=== PATIENT | male | born 1965 | race Caucasian/White ===

== ENCOUNTER 2016-09-20 00:46 | Emergency (ER) | payer BC, OTHER ==
[~2016-09-20 00:46] MED LIST: /TAMS4CA OR; CIPR500T4 OR; OXYB5TAB4 OR; PERC5TAB8 OR
[2016-09-20] MEDS ORDERED: CEPHALEXIN 250 MG CAP As Ordered ONE (03:14)
--- NOTE | 2016-09-20 03:31 | EDDOCDS ---
Physician Documentation [facility] Name: Huy Rockwell Age: 50 yrs Sex: Male : 1965 Arrival Date: 09/20/2016 Time: 00:46 Bed 10 Private MD: Disposition: 09/20/16 03:07 Discharged to Home/Self Care. Impression: Cellulitis of right upper limb. - Condition is Stable. - Discharge Instructions: Cellulitis, Cellulitis, [id number]. - Prescriptions for Keflex 500 mg Oral Capsule - take 1 capsule by ORAL route every 6 hours for 10 days; 40 capsule. - Medication Reconciliation, Local Pharmacy Hours form. - Follow up: Pauline Medina PA-C; When: Call to arrange an appointment; Reason: Continuance of care. - Problem is an acute exacerbation. - Symptoms have improved. Historical: - Allergies: Aspirin (Anaphylaxis); Morphine; - Home Meds: 1. ibuprofen 800 mg Oral tab 1 tab 4 times per day (Last dose: 09/19/2016) - PMHx: Kidney stones; Gout; - PSHx: kidney stone removal; - Social history: Smoking status: Patient states was never smoker of tobacco. No barriers to communication noted, The patient speaks fluent Jordanian. - Family history: Not pertinent. - : The pt / caregiver states he / she is not on anticoagulants. Home medication list is obtained from the patient. - Exposure Risk Screening:: None identified. Vital Signs: 09/20 00:52 BP 149 / 102; Pulse 103; Resp 18; Temp 98.5(O); Pulse Ox 96% on R/A; Weight 136.08 kg / mcp 300.01 lbs; Height 5 ft. 10 in. (177.80 cm); Pain 5/10; 03:28 BP 138 / 90; Pulse 78; Resp 18; Temp 97.8; Pulse Ox 97% ; Pain 5/10; mlc 00:52 Body Mass Index 43.05 (136.08 kg, 177.80 cm) mcp 03:28 Dr. Burns made aware of BP mlc MDM: 03:07 Cephalexin 500 mg PO once ordered. mm11 Administered Medications: 03:27 Drug: Cephalexin 500 mg [cephalexin 250 mg capsule (2 caps)] Route: PO; mlc 03:27 Follow up: Response: Pt left department before re-evaluation is appropriate mlc Signatures: Bianca Downs, KENYON RN mcp Dar Burns, DO mm11 Paty Rebollar,KENYON RN mlc MTDD
--- NOTE | 2016-09-20 03:31 | EDDOCDS ---
Nurse's Notes [facility] Name: Huy Rockwell Age: 50 yrs Sex: Male : 1965 Arrival Date: 09/20/2016 Time: 00:46 Bed 10 Private MD: Diagnosis: Cellulitis of right upper limb Presentation: 09/20 00:54 Presenting complaint: Patient states: Right arm reddened and swollen today--thought he mcp had gout 3 days ago. Adult Sepsis Screening: The patient does not have new or worsening altered mentation. Patient's respiratory rate is less than 22. Systolic blood pressure is greater than 100. Patient has a qSOFA score of 0- Negative Sepsis Screen. Suicide/Homicide risk assessment- the patient denies having any suicidal and/or homicidal ideations and does not present with any other emotional, behavioral or mental health complaints. Status: Patient is not a claim service representative or dependent. Transition of care: patient was not received from another setting of care. 00:54 Acuity: DURAN Level 4 [facility] 00:54 Method Of Arrival: Walkin/Carried/Asstd [facility] Triage Assessment: 00:56 General: Appears uncomfortable, Behavior is cooperative. Pain: Location: right arm Pain mcp currently is 5 out of 10 on a pain scale. HIV screening NA for this visit Offered previously. Neurological: No deficits noted. Respiratory: Airway is patent Respiratory effort is even, unlabored. Derm: Skin is pink, warm & dry. right arm reddened. Musculoskeletal: Circulation, motion, and sensation intact Swelling present in right arm. Historical: - Allergies: Aspirin (Anaphylaxis); Morphine; - Home Meds: 1. ibuprofen 800 mg Oral tab 1 tab 4 times per day (Last dose: 09/19/2016) - PMHx: Kidney stones; Gout; - PSHx: kidney stone removal; - Social history: Smoking status: Patient states was never smoker of tobacco. No barriers to communication noted, The patient speaks fluent Slovak. - Family history: Not pertinent. - : The pt / caregiver states he / she is not on anticoagulants. Home medication list is obtained from the patient. - Exposure Risk Screening:: None identified. Screenin:52 Screening information is obtained from the patient. Fall risk: No risks identified. mlc Assistance ADL's: requires no assistance with activities of daily living. Abuse/DV Screen: The patient / caregiver reports he/she is: not in a situation that causes fear, pain or injury. Nutritional screening: No deficits noted. Advance Directives: Currently, there is a health care proxy, Fanny Rockwell, . There is no active DNR order. There is no living will. There is an active Power of Heating And Ventilating Drafter, Fanny Rockwell, . home support is adequate. Assessment: 02:52 General: Appears in no apparent distress, comfortable, Behavior is cooperative. Pain: mlc Location: dorsal aspect of right forearm, right elbow and palmar aspect of right forearm Pain currently is 5 out of 10 on a pain scale. Neurological: Level of Consciousness is awake, alert, Oriented to person, place, time. Cardiovascular: Edema is 1+ to right forearm and right wrist Pulses are all present. Respiratory: Airway is patent Respiratory effort is even, unlabored, Respiratory pattern is regular. Derm: Skin is red, on dorsal aspect of right forearm, right wrist, right hand, right elbow and palmar aspect of right forearm. 03:28 General: Appears in no apparent distress, comfortable, Behavior is cooperative. mlc Neurological: Level of Consciousness is awake, alert, Oriented to person, place, time. Respiratory: Airway is patent Respiratory effort is even, unlabored, Respiratory pattern is regular. Vital Signs: 00:52 BP 149 / 102; Pulse 103; Resp 18; Temp 98.5(O); Pulse Ox 96% on R/A; Weight 136.08 kg; [facility] Height 5 ft. 10 in. (177.80 cm); Pain 5/10; 03:28 BP 138 / 90; Pulse 78; Resp 18; Temp 97.8; Pulse Ox 97% ; Pain 5/10; [facility] 00:52 Body Mass Index 43.05 (136.08 kg, 177.80 cm) [facility] 03:28 Dr. Burns made aware of BP [facility] Vitals: 00:52 Log In Time: September 20, 2016 at 00:46. [facility] ED Course: 00:48 Patient visited by Aminata Morse. gjb 00:48 Patient moved to Waiting gjb 00:54 Triage Initiated [facility] 00:56 Patient visited by Bianca Downs RN. [facility] 00:58 Patient moved to [facility] Wait [facility] 02:27 Paty Rebollar RN is Primary Nurse. cln 02:27 Patient moved to cln 02:36 Patient visited by Blu Naqvi PCA. kb5 02:53 Dar Burns DO is Attending Physician. mm11 02:53 Patient visited by Dar Burns DO. mm11 03:05 Patient visited by Dar Burns DO. mm11 03:07 Pauline Medina PA-C is Referral Physician. mm11 03:28 The patient / caregiver is instructed regarding the plan of care and ED course. mlc 03:28 No IV's were initiated during this patient's visit. No procedures done that require mlc assistance. Administered Medications: 03:27 Drug: Cephalexin 500 mg [cephalexin 250 mg capsule (2 caps)] Route: PO; mlc 03:27 Follow up: Response: Pt left department before re-evaluation is appropriate mlc Order Results: There are currently no results for this order. Outcome: 03:07 Discharge ordered by Provider. mm11 03:28 Discharge Assessment: Patient awake, alert and oriented x 3. No cognitive and/or mlc functional deficits noted. Patient verbalized understanding of disposition instructions. patient administered narcotics - no. The following High Risk Discharge criteria are identified: None. Discharged to home ambulatory, with significant other. Condition: good Condition: stable. Discharge instructions given to patient, Instructed on discharge instructions, follow up and referral plans. medication usage, Demonstrated understanding of instructions, medications, Pt was receptive of discharge instructions/ teaching. Prescriptions given X 1. No special radiology studies were completed. Property sent home with patient. 03:29 Patient left the ED. mlc Signatures: Bianca Downs RN RN [facility] Blu Naqvi, HEAD HOUSEKEEPER HEAD HOUSEKEEPER kb5 Dar Burns DO DO [facility] Paty Rebollar RN RN mlc Beck, Gabriela gjb Nichols, Crystal, HEAD HOUSEKEEPER HEAD HOUSEKEEPER cln BRITTNI
--- NOTE | 2016-09-22 12:27 | EDDOCDS ---
Nurse's Notes [facility] Name: Huy Rockwell Age: 50 yrs Sex: Male : 1965 Arrival Date: 09/20/2016 Time: 00:46 Bed 10 Private MD: Diagnosis: Cellulitis of right upper limb Presentation: 09/20 00:54 Presenting complaint: Patient states: Right arm reddened and swollen today--thought he mcp had gout 3 days ago. Adult Sepsis Screening: The patient does not have new or worsening altered mentation. Patient's respiratory rate is less than 22. Systolic blood pressure is greater than 100. Patient has a qSOFA score of 0- Negative Sepsis Screen. Suicide/Homicide risk assessment- the patient denies having any suicidal and/or homicidal ideations and does not present with any other emotional, behavioral or mental health complaints. Status: Patient is not a social services aide or dependent. Transition of care: patient was not received from another setting of care. 00:54 Acuity: DURAN Level 4 [facility] 00:54 Method Of Arrival: Walkin/Carried/Asstd [facility] Triage Assessment: 00:56 General: Appears uncomfortable, Behavior is cooperative. Pain: Location: right arm Pain mcp currently is 5 out of 10 on a pain scale. HIV screening NA for this visit Offered previously. Neurological: No deficits noted. Respiratory: Airway is patent Respiratory effort is even, unlabored. Derm: Skin is pink, warm & dry. right arm reddened. Musculoskeletal: Circulation, motion, and sensation intact Swelling present in right arm. Historical: - Allergies: Aspirin (Anaphylaxis); Morphine; - Home Meds: 1. ibuprofen 800 mg Oral tab 1 tab 4 times per day (Last dose: 09/19/2016) - PMHx: Kidney stones; Gout; - PSHx: kidney stone removal; - Social history: Smoking status: Patient states was never smoker of tobacco. No barriers to communication noted, The patient speaks fluent Thai. - Family history: Not pertinent. - : The pt / caregiver states he / she is not on anticoagulants. Home medication list is obtained from the patient. - Exposure Risk Screening:: None identified. Screenin:52 Screening information is obtained from the patient. Fall risk: No risks identified. mlc Assistance ADL's: requires no assistance with activities of daily living. Abuse/DV Screen: The patient / caregiver reports he/she is: not in a situation that causes fear, pain or injury. Nutritional screening: No deficits noted. Advance Directives: Currently, there is a health care proxy, Fanny Rockwell, . There is no active DNR order. There is no living will. There is an active Power of Printing Sign Machine Operator, Fanny Rockwell, . home support is adequate. Assessment: 02:52 General: Appears in no apparent distress, comfortable, Behavior is cooperative. Pain: mlc Location: dorsal aspect of right forearm, right elbow and palmar aspect of right forearm Pain currently is 5 out of 10 on a pain scale. Neurological: Level of Consciousness is awake, alert, Oriented to person, place, time. Cardiovascular: Edema is 1+ to right forearm and right wrist Pulses are all present. Respiratory: Airway is patent Respiratory effort is even, unlabored, Respiratory pattern is regular. Derm: Skin is red, on dorsal aspect of right forearm, right wrist, right hand, right elbow and palmar aspect of right forearm. 03:28 General: Appears in no apparent distress, comfortable, Behavior is cooperative. mlc Neurological: Level of Consciousness is awake, alert, Oriented to person, place, time. Respiratory: Airway is patent Respiratory effort is even, unlabored, Respiratory pattern is regular. Vital Signs: 00:52 BP 149 / 102; Pulse 103; Resp 18; Temp 98.5(O); Pulse Ox 96% on R/A; Weight 136.08 kg; [facility] Height 5 ft. 10 in. (177.80 cm); Pain 5/10; 03:28 BP 138 / 90; Pulse 78; Resp 18; Temp 97.8; Pulse Ox 97% ; Pain 5/10; [facility] 00:52 Body Mass Index 43.05 (136.08 kg, 177.80 cm) [facility] 03:28 Dr. Burns made aware of BP [facility] Vitals: 00:52 Log In Time: September 20, 2016 at 00:46. [facility] ED Course: 00:48 Patient visited by Aminata Morse. gjb 00:48 Patient moved to Waiting gjb 00:54 Triage Initiated [facility] 00:56 Patient visited by Bianca Downs RN. [facility] 00:58 Patient moved to [facility] Wait [facility] 02:27 Paty Rebollar RN is Primary Nurse. cln 02:27 Patient moved to cln 02:36 Patient visited by Blu Naqvi PCA. kb5 02:53 Dar Burns DO is Attending Physician. mm11 02:53 Patient visited by Dar Bunrs DO. mm11 03:05 Patient visited by Dar Burns DO. mm11 03:07 Pauline Medina PA-C is Referral Physician. mm11 03:28 The patient / caregiver is instructed regarding the plan of care and ED course. mlc 03:28 No IV's were initiated during this patient's visit. No procedures done that require mlc assistance. 03:31 [facility] Payment Agreement was scanned into [employer] and attached to record. [facility] 03:42 [facility] Payment Agreement was scanned into [employer] and attached to record. [facility] 07:52 T-Sheet-- Draft Copy was scanned into [employer] and attached to record. se Administered Medications: 03:27 Drug: Cephalexin 500 mg [cephalexin 250 mg capsule (2 caps)] Route: PO; mlc 03:27 Follow up: Response: Pt left department before re-evaluation is appropriate mlc Order Results: There are currently no results for this order. Outcome: 03:07 Discharge ordered by Provider. mm11 03:28 Discharge Assessment: Patient awake, alert and oriented x 3. No cognitive and/or mlc functional deficits noted. Patient verbalized understanding of disposition instructions. patient administered narcotics - no. The following High Risk Discharge criteria are identified: None. Discharged to home ambulatory, with significant other. Condition: good Condition: stable. Discharge instructions given to patient, Instructed on discharge instructions, follow up and referral plans. medication usage, Demonstrated understanding of instructions, medications, Pt was receptive of discharge instructions/ teaching. Prescriptions given X 1. No special radiology studies were completed. Property sent home with patient. 03:29 Patient left the ED. mlc Signatures: Bianca Downs RN RN [facility] Blu Naqvi, PILATES INSTRUCTOR PILATES INSTRUCTOR kb5 Dar Burns DO DO mm11 Paty Rebollar RN RN mlc Beck, Gabriela gjb Nichols, Crystal, PILATES INSTRUCTOR PILATES INSTRUCTOR lesley Luther, Nati [facility] Chart Complete MTDD
--- NOTE | 2016-09-22 12:27 | EDDOCDS ---
Physician Documentation [facility] Name: Huy Rockwell Age: 50 yrs Sex: Male : 1965 Arrival Date: 09/20/2016 Time: 00:46 Bed 10 Private MD: Disposition: 09/20/16 03:07 Discharged to Home/Self Care. Impression: Cellulitis of right upper limb. - Condition is Stable. - Discharge Instructions: Cellulitis, Cellulitis, [id number]. - Prescriptions for Keflex 500 mg Oral Capsule - take 1 capsule by ORAL route every 6 hours for 10 days; 40 capsule. - Medication Reconciliation, Local Pharmacy Hours form. - Follow up: Pauline Medina PA-C; When: Call to arrange an appointment; Reason: Continuance of care. - Problem is an acute exacerbation. - Symptoms have improved. Historical: - Allergies: Aspirin (Anaphylaxis); Morphine; - Home Meds: 1. ibuprofen 800 mg Oral tab 1 tab 4 times per day (Last dose: 09/19/2016) - PMHx: Kidney stones; Gout; - PSHx: kidney stone removal; - Social history: Smoking status: Patient states was never smoker of tobacco. No barriers to communication noted, The patient speaks fluent Kittitian. - Family history: Not pertinent. - : The pt / caregiver states he / she is not on anticoagulants. Home medication list is obtained from the patient. - Exposure Risk Screening:: None identified. Vital Signs: 09/20 00:52 BP 149 / 102; Pulse 103; Resp 18; Temp 98.5(O); Pulse Ox 96% on R/A; Weight 136.08 kg / mcp 300.01 lbs; Height 5 ft. 10 in. (177.80 cm); Pain 5/10; 03:28 BP 138 / 90; Pulse 78; Resp 18; Temp 97.8; Pulse Ox 97% ; Pain 5/10; mlc 00:52 Body Mass Index 43.05 (136.08 kg, 177.80 cm) mcp 03:28 Dr. Burns made aware of BP mlc MDM: 03:07 Cephalexin 500 mg PO once ordered. mm11 03:31 [facility] Payment Agreement was scanned into [employer] and attached to record. b 03:31 Financial registration complete. b 03:42 [facility] Payment Agreement was scanned into [employer] and attached to record. [facility] 07:52 T-Sheet-- Draft Copy was scanned into [employer] and attached to record. [facility] Administered Medications: 03:27 Drug: Cephalexin 500 mg [cephalexin 250 mg capsule (2 caps)] Route: PO; [facility] 03:27 Follow up: Response: Pt left department before re-evaluation is appropriate [facility] Signatures: Bianca Downs RN RN mcp Maynard, Matthew, DO DO mm11 Paty Rebollar RN RN mlc Beck, Gabriela gjb Hoffert, Sarah se The chart was reviewed and I authenticate all verbal orders and agree with the evaluation and treatment provided.Attachments: 03:42 [facility] Payment Agreement [facility] 07:52 T-Sheet-- Draft Copy [facility] Chart Complete MTDD
--- NOTE | 2016-09-22 12:27 | EDDOCDS ---
Physician Documentation [facility] Name: Huy Rockwell Age: 50 yrs Sex: Male : 1965 Arrival Date: 09/20/2016 Time: 00:46 Bed 10 Private MD: Disposition: 09/20/16 03:07 Discharged to Home/Self Care. Impression: Cellulitis of right upper limb. - Condition is Stable. - Discharge Instructions: Cellulitis, Cellulitis, [id number]. - Prescriptions for Keflex 500 mg Oral Capsule - take 1 capsule by ORAL route every 6 hours for 10 days; 40 capsule. - Medication Reconciliation, Local Pharmacy Hours form. - Follow up: Pauline Medina PA-C; When: Call to arrange an appointment; Reason: Continuance of care. - Problem is an acute exacerbation. - Symptoms have improved. Historical: - Allergies: Aspirin (Anaphylaxis); Morphine; - Home Meds: 1. ibuprofen 800 mg Oral tab 1 tab 4 times per day (Last dose: 09/19/2016) - PMHx: Kidney stones; Gout; - PSHx: kidney stone removal; - Social history: Smoking status: Patient states was never smoker of tobacco. No barriers to communication noted, The patient speaks fluent Japanese. - Family history: Not pertinent. - : The pt / caregiver states he / she is not on anticoagulants. Home medication list is obtained from the patient. - Exposure Risk Screening:: None identified. Vital Signs: 09/20 00:52 BP 149 / 102; Pulse 103; Resp 18; Temp 98.5(O); Pulse Ox 96% on R/A; Weight 136.08 kg / mcp 300.01 lbs; Height 5 ft. 10 in. (177.80 cm); Pain 5/10; 03:28 BP 138 / 90; Pulse 78; Resp 18; Temp 97.8; Pulse Ox 97% ; Pain 5/10; mlc 00:52 Body Mass Index 43.05 (136.08 kg, 177.80 cm) mcp 03:28 Dr. Burns made aware of BP mlc MDM: 03:07 Cephalexin 500 mg PO once ordered. mm11 03:31 [facility] Payment Agreement was scanned into [employer] and attached to record. b 03:31 Financial registration complete. b 03:42 [facility] Payment Agreement was scanned into [employer] and attached to record. [facility] 07:52 T-Sheet-- Draft Copy was scanned into [employer] and attached to record. [facility] Administered Medications: 03:27 Drug: Cephalexin 500 mg [cephalexin 250 mg capsule (2 caps)] Route: PO; [facility] 03:27 Follow up: Response: Pt left department before re-evaluation is appropriate [facility] Signatures: Bianca Downs RN RN mcp Maynard, Matthew, DO DO mm11 Paty Rebollar RN RN mlc Beck, Gabriela gjb Hoffert, Sarah se The chart was reviewed and I authenticate all verbal orders and agree with the evaluation and treatment provided.Attachments: 03:42 [facility] Payment Agreement [facility] 07:52 T-Sheet-- Draft Copy [facility] Chart Complete MTDD
== END 2016-09-20 03:29 | disposition home or self-care (01) ==
LOC: M ED 00:46
DX: L03.113 Cellulitis of right upper limb (principal); Z87.442 Personal history of urinary calculi; M10.9 Gout, unspecified; Z88.6 Allergy status to analgesic agent; Z88.8 Allergy status to other drugs, medicaments and biological substances

== ENCOUNTER → 2016-10-22 | Outpatient (REF) | payer OTHER ==
[2016-10-22 19:09] LABS: BASO % 0.8 % (0.0-1.0); EOS # 0.2 K/mm3 (0.0-0.50); EOS % 2.9 % (0.0-3.0); LARGE UNSTAINED CELL # 0.1 K/mm3 (0.0-0.4); LARGE UNSTAINED CELL % 1.6 % (0.0-4.0); MEAN CORPUSCULAR HGB CONC 33.6 g/dl (32.0-36.5); MEAN CORPUSCULAR VOLUME 92.2 fl (80.0-96.0); MONO # 0.4 K/mm3 (0.0-0.8); MONO % 6.1 % (0.0-5.0); NEUTROPHILS # 4.4 K/mm3 (1.8-7.7); NEUTROPHILS % 61.5 % (36.0-66.0); PLATELET COUNT, AUTOMATED 256 k/mm3 (150-450); RED CELL DISTRIBUTION WIDTH 13.3 % (11.5-14.5); WHITE BLOOD COUNT 7.1 K/mm3 (4.0-10.0)
[2016-10-22 20:46] LABS: ERYTHROCYTE SEDIMENTATION RATE 26 mm/hr (0-20)
[2016-10-24 15:12] LABS: Lyme Disease IgG/IgM Antibodie <0.91 ISR (0.00-0.90); Lyme Disease IgM Ab Quantitati <0.80 index (0.00-0.79)
== END ==
LOC: M SFHCADAM 14:45
PROVIDERS: ATTEND Physician Assistant Medical
DX: M25.521 Pain in right elbow (principal); L03.113 Cellulitis of right upper limb

== ENCOUNTER → 2017-08-27 | Outpatient (REF) | payer OTHER | LOC: M SMT 12:56 | PROVIDERS: ATTEND Nurse Practitioner Women's Health | DX: N13.2 Hydronephrosis with renal and ureteral calculous obstruction (principal) ==

== ENCOUNTER → 2017-08-27 | Outpatient (CLI) | payer BC, OTHER ==
[2017-08-27 17:41] LABS: IONIZED CALCIUM 4.7 MG/DL (4.5-5.3)
[2017-08-27 18:11] LABS: ANION GAP 3 MEQ/L (8-16); BLOOD UREA NITROGEN 16 MG/DL (7-18); CARBON DIOXIDE LEVEL 34 MEQ/L (21-32); CHLORIDE LEVEL 103 MEQ/L (98-107); CREATININE FOR GFR 0.98 MG/DL (0.70-1.30); GLOMERULAR FILTRATION RATE > 60.0 (>56); GLUCOSE, FASTING 108 MG/DL (70-105); MAGNESIUM LEVEL 2.3 MG/DL (1.8-2.4); POTASSIUM SERUM 4.6 MEQ/L (3.5-5.1); SODIUM LEVEL 140 MEQ/L (136-145); URIC ACID 7.8 MG/DL (3.5-7.2)
== END ==
LOC: M SMT 13:17
PROVIDERS: ATTEND Nurse Practitioner Women's Health
DX: N13.2 Hydronephrosis with renal and ureteral calculous obstruction (principal)

== ENCOUNTER 2018-07-27 21:22 | Emergency (ER) | payer BC, OTHER ==
[2018-07-27] MEDS ORDERED: KETOROLAC 30 MG/ML VIAL (J1885) IV (22:00)
[2018-07-27] MEDS: NS 1,000 ML IV (22:11)
[2018-07-27] MEDS: fentaNYL 100 MCG/2 ML INJECTION (J3010) IV ×5 (22:12→23:45)
[2018-07-27] MEDS: ONDANSETRON 4MG/2ML VIAL (J2405) IV (22:12)
[2018-07-27 22:13] LABS: BASO # 0.1 10^3/uL (0.0-0.2); BASO % 0.5 % (0.0-1.0); EOS % 0.4 % (0.0-3.0); HEMATOCRIT 49.5 % (42.0-52.0); HEMOGLOBIN 16.8 g/dl (13.5-17.5); IMMATURE GRANULOCYTE % 0.3 % (0-3.0); LYMPH # 1.3 10^3/uL (1.5-4.5); LYMPH % 12.3 % (24.0-44.0); MEAN CORPUSCULAR HEMOGLOBIN 30.8 pg (27.0-33.0); MEAN CORPUSCULAR HGB CONC 33.9 g/dl (32.0-36.5); MEAN CORPUSCULAR VOLUME 90.7 fl (80.0-96.0); MONO # 0.6 10^3/uL (0.0-0.8); MONO % 5.7 % (0.0-5.0); NEUTROPHILS # 8.3 10^3/uL (1.8-7.7); NEUTROPHILS % 80.8 % (36.0-66.0); PLATELET COUNT, AUTOMATED 273 10^3/uL (150-450); RED BLOOD COUNT 5.46 10^6/uL (4.30-6.10); RED CELL DISTRIBUTION WIDTH 12.7 % (11.5-14.5); WHITE BLOOD COUNT 10.3 10^3/uL (4.0-10.0)
[2018-07-27 22:24] LABS: KETONE, URINE AUTO RFX NEGATIVE (NEGATIVE); LEUKOCYTE ESTERASE UR AUTO RFX NEGATIVE (NEGATIVE); MUCUS, URINE RFX SMALL (NEGATIVE); NITRITE, URINE AUTO RFX NEGATIVE (NEGATIVE); RBC, URINE AUTO RFX TNTC /HPF (0-3); SPECIFIC GRAVITY UR AUTO RFX 1.018 (1.002-1.035); SQUAM EPITHELIAL CELL UR AURFX 0 /HPF (0-6); WBC, URINE AUTO RFX 2 /HPF (0-3); YEAST LIKE CELL URINE AUTO RFX SMALL
[2018-07-27 22:39] LABS: ALBUMIN 3.9 GM/DL (3.2-5.2); ALBUMIN/GLOBULIN RATIO 0.95 (1.00-1.93); ALKALINE PHOSPHATASE 111 U/L (45-117); ALT/SGPT 71 U/L (12-78); ANION GAP 8 MEQ/L (8-16); AST/SGOT 35 U/L (7-37); BILIRUBIN,DIRECT 0.1 MG/DL (0.0-0.2); BILIRUBIN,TOTAL 0.3 MG/DL (0.2-1.0); BLOOD UREA NITROGEN 12 MG/DL (7-18); CARBON DIOXIDE LEVEL 27 MEQ/L (21-32); CHLORIDE LEVEL 103 MEQ/L (98-107); CREATININE FOR GFR 1.06 MG/DL (0.70-1.30); GLOMERULAR FILTRATION RATE > 60.0 (>56); GLUCOSE, FASTING 162 MG/DL (70-100); LIPASE 115 U/L (73-393); POTASSIUM SERUM 4.4 MEQ/L (3.5-5.1); SODIUM LEVEL 138 MEQ/L (136-145)
[2018-07-27] MEDS: TAMSULOSIN 0.4 MG CAP PO (23:30)
[2018-07-27] MEDS: OXYCODONE/APAP 5MG/325MG(BULK FOR ED) 1 TABLET PO (23:30)
== END 2018-07-28 00:31 | disposition home or self-care (01) ==
LOC: M ED 07-28 00:31
DX: N20.1 Calculus of ureter (principal); R73.9 Hyperglycemia, unspecified; N13.30 Unspecified hydronephrosis; Z87.442 Personal history of urinary calculi; Z98.890 Other specified postprocedural states; Z88.8 Allergy status to other drugs, medicaments and biological substances; Z88.5 Allergy status to narcotic agent
CPT/HCPCS: J2405

== ENCOUNTER → 2018-07-29 | Outpatient (REF) | payer OTHER ==
[2018-07-29 13:16] LABS: BASO % 0.5 % (0.0-1.0); EOS # 0.1 10^3/uL (0.0-0.50); EOS % 1.5 % (0.0-3.0); HEMATOCRIT 44.3 % (42.0-52.0); IMMATURE GRANULOCYTE % 0.7 % (0-3.0); LYMPH # 2.3 10^3/uL (1.5-4.5); MEAN CORPUSCULAR HEMOGLOBIN 30.9 pg (27.0-33.0); MEAN CORPUSCULAR HGB CONC 33.9 g/dl (32.0-36.5); MEAN CORPUSCULAR VOLUME 91.3 fl (80.0-96.0); MONO # 0.7 10^3/uL (0.0-0.8); MONO % 8.4 % (0.0-5.0); NEUTROPHILS # 5.6 10^3/uL (1.8-7.7); NEUTROPHILS % 62.9 % (36.0-66.0); PLATELET COUNT, AUTOMATED 252 10^3/uL (150-450); RED BLOOD COUNT 4.85 10^6/uL (4.30-6.10); RED CELL DISTRIBUTION WIDTH 12.9 % (11.5-14.5); WHITE BLOOD COUNT 8.8 10^3/uL (4.0-10.0)
[2018-07-29 13:29] LABS: ALBUMIN 3.4 GM/DL (3.2-5.2); ALBUMIN/GLOBULIN RATIO 0.94 (1.00-1.93); ALKALINE PHOSPHATASE 85 U/L (45-117); ALT/SGPT 57 U/L (12-78); ANION GAP 10 MEQ/L (8-16); AST/SGOT 41 U/L (7-37); BILIRUBIN,TOTAL 0.6 MG/DL (0.2-1.0); BLOOD UREA NITROGEN 14 MG/DL (7-18); CALCIUM LEVEL 8.4 MG/DL (8.5-10.1); CARBON DIOXIDE LEVEL 27 MEQ/L (21-32); CHLORIDE LEVEL 101 MEQ/L (98-107); CHOLESTEROL LEVEL 175 MG/DL (<200); CHOLESTEROL RISK RATIO 3.181 (<5); CREATININE FOR GFR 1.16 MG/DL (0.70-1.30); GLOMERULAR FILTRATION RATE > 60.0 (>56); GLUCOSE, FASTING 133 MG/DL (70-100); HDL CHOLESTEROL 55 MG/DL (>40); LDL CHOLESTEROL 92 MG/DL (<100); NON-HDL-C 120 MG/DL; POTASSIUM SERUM 3.8 MEQ/L (3.5-5.1); SODIUM LEVEL 138 MEQ/L (136-145); TRIGLYCERIDES LEVEL 141 MG/DL (<150)
[2018-07-29 13:30] LABS: MALB URINE SIEMENS 19.5 MG/L; MAU/CREAT RATIO 13.7 MCG/MG (0.0-30.0)
[2018-07-29 13:57] LABS: ESTIMATED AVERAGE GLUCOSE 166 MG/DL (60-110); HEMOGLOBIN A1c 7.4 %
== END ==
LOC: M SFHCADAM 08:58
DX: E66.01 Morbid (severe) obesity due to excess calories (principal); R73.01 Impaired fasting glucose

== ENCOUNTER → 2018-07-29 | Outpatient (REF) | payer OTHER | LOC: M SMT 08-01 13:16 | DX: N20.0 Calculus of kidney (principal) | CPT/HCPCS: 82360 ==

== ENCOUNTER → 2018-08-17 | Outpatient (CLI) | payer BC, OTHER | LOC: M ADAMS 09:28 | DX: Z01.818 Encounter for other preprocedural examination (principal); M51.34 Other intervertebral disc degeneration, thoracic region | CPT/HCPCS: 71046 ==

== ENCOUNTER 2018-08-18 09:34 | Day surgery (SDC) | payer BC, OTHER ==
[~2018-08-18 09:34] MED LIST changes: -/TAMS4CA OR; -CIPR500T4 OR; +MIDAZOLAM INJ 2 MG/2 ML VIAL (J2250) As Ordered; -OXYB5TAB4 OR; -PERC5TAB8 OR; +PROPOFOL 200 MG/20 ML VIAL As Ordered; +fentaNYL 100 MCG/2 ML INJECTION (J3010) As Ordered
[2018-08-18] MEDS ORDERED: PROPOFOL 200 MG/20 ML VIAL As Ordered (10:50)
[2018-08-18 10:55] LABS: BEDSIDE GLUCOSE 139 MG/DL (70-105)
[2018-08-18 11:12] LABS: INR 1.08; PROTHROMBIN TIME 14.1 SECONDS (12.1-14.4)
[2018-08-18 11:13] LABS: PARTIAL THROMBOPLASTIN TIME 31.2 SECONDS (25.4-37.6)
[2018-08-18] MEDS: ceFAZolin SOD 1 GM in D5W MINI-BAG PLUS 50 ML IV (11:17)
== END 2018-08-18 13:25 | disposition home or self-care (01) ==
LOC: M SDC 09:34
DX: N20.0 Calculus of kidney (principal); E11.9 Type 2 diabetes mellitus without complications; M10.9 Gout, unspecified; E66.01 Morbid (severe) obesity due to excess calories; Z68.41 Body mass index [BMI] 40.0-44.9, adult; Z88.5 Allergy status to narcotic agent; Z88.6 Allergy status to analgesic agent; Z79.84 Long term (current) use of oral hypoglycemic drugs
CPT/HCPCS: 50590

== ENCOUNTER → 2018-09-19 | Outpatient (CLI) | payer BC, OTHER ==
[~2018-09-19] MED LIST changes: +/TAMS4CA OR; +CIPR500T4 OR; +FLOM0.4C39 PO; +METF500T13 PO; -MIDAZOLAM INJ 2 MG/2 ML VIAL (J2250) As Ordered; +OXYB5TAB4 OR; +PERC5TAB12 PO; +PERC5TAB8 OR; -PROPOFOL 200 MG/20 ML VIAL As Ordered; -fentaNYL 100 MCG/2 ML INJECTION (J3010) As Ordered
--- NOTE | 2018-09-20 02:27 | REP ---
Clinical: Nephrolithiasis. Technique: Two supine views of the abdomen and pelvis. Comparison: 08/18/2018. Findings: Small bilateral intrarenal calculi are again suggested. Further evaluation of the urinary tract system is limited due to technique. Bowel gas pattern is nonspecific. Skeletal structures are intact. Impression: Bilateral nephrolithiasis again suspected. Electronically Signed by Caden Zuniga MD 09/20/2018 02:20 A
== END ==
LOC: M SMT 14:47
PROVIDERS: ATTEND Nurse Practitioner Family
DX: N20.0 Calculus of kidney (principal)

== ENCOUNTER → 2018-10-25 | Outpatient (CLI) | payer BC, OTHER ==
--- NOTE | 2018-10-25 08:57 | REP ---
CT of the abdomen and pelvis without IV and oral contrast for renal calculus: Comparison is 07/27/2018. There are multiple nonobstructive renal calculi bilaterally, similar to the prior study. There is no hydronephrosis. The distal left ureteral calculus identified on the prior study is no longer present. There are no right ureteral calculi. No perinephric stranding. The unenhanced kidneys are otherwise unremarkable. The visualized lung barreto are unremarkable. The unenhanced hepatic parenchyma, gallbladder, pancreas, spleen and adrenals are unremarkable. The abdominal aorta is unremarkable. There is no bowel distension or obstruction. There is diverticulosis of the descending colon and sigmoid colon without acute diverticulitis. Pelvis: The appendix is unremarkable. There is no adenopathy or ascites. The bladder is unremarkable. The pelvic bowel loops are unremarkable. Impression: There are multiple nonobstructive bilateral renal calculi, similar to the prior study. There are no ureteral calculi. There is no hydronephrosis. The previous distal left ureteral calculus is no longer present. Electronically Signed by Kip Aponte MD 10/25/2018 08:49 A
== END ==
LOC: M RAD 07:11
PROVIDERS: ATTEND Internal Medicine Nephrology
DX: N20.0 Calculus of kidney (principal)

== ENCOUNTER → 2019-02-17 | Outpatient (REF) | payer OTHER ==
[~2019-02-17] MED LIST changes: -/TAMS4CA OR; +FLOM0.4C39 OR
== END ==
LOC: M SFHCADAM 14:02
PROVIDERS: ATTEND Physician Assistant Medical
DX: E11.9 Type 2 diabetes mellitus without complications (principal); E66.01 Morbid (severe) obesity due to excess calories; Z53.9 Procedure and treatment not carried out, unspecified reason

== ENCOUNTER → 2019-08-03 | Outpatient (REF) | payer OTHER ==
[2019-08-03 13:40] LABS: ALBUMIN 3.3 GM/DL (3.2-5.2); ALT/SGPT 97 U/L (12-78); BILIRUBIN,TOTAL 0.4 MG/DL (0.2-1.0); BLOOD UREA NITROGEN 8 MG/DL (7-18); CALCIUM LEVEL 8.7 MG/DL (8.5-10.1); CARBON DIOXIDE LEVEL 30 MEQ/L (21-32); CHLORIDE LEVEL 102 MEQ/L (98-107); CHOLESTEROL LEVEL 176 MG/DL (<200); CHOLESTEROL RISK RATIO 3.744 (<5); CREATININE FOR GFR 1.07 MG/DL (0.70-1.30); GLOMERULAR FILTRATION RATE > 60.0 (>56); GLUCOSE, FASTING 220 MG/DL (70-100); HDL CHOLESTEROL 47 MG/DL (>40); LDL CHOLESTEROL 91 MG/DL (<100); NON-HDL-C 129 MG/DL; POTASSIUM SERUM 4.4 MEQ/L (3.5-5.1); SODIUM LEVEL 138 MEQ/L (136-145); TOTAL PROTEIN 7.3 GM/DL (6.4-8.2); TRIGLYCERIDES LEVEL 189 MG/DL (<150); URIC ACID 5.1 MG/DL (3.5-7.2)
[2019-08-03 14:08] LABS: HEMOGLOBIN A1c 10.5 %
== END ==
LOC: M SFHCADAM 07:43
PROVIDERS: ATTEND Physician Assistant Medical
DX: E11.9 Type 2 diabetes mellitus without complications (principal); M10.9 Gout, unspecified

== ENCOUNTER → 2019-10-16 | Outpatient (CLI) | payer BC, OTHER ==
--- NOTE | 2019-10-17 03:50 | REP ---
Clinical: Elevated liver function test. Technique: Real time oreilly scale ultrasound examination using curved array transducer. Findings: Liver is mildly hyperechoic and minimally enlarged measuring 20 cm craniocaudal length. No focal hepatic lesion identified. Pancreas is normal. Gallbladder is unremarkable and without gallstones, wall thickening, or pericholecystic fluid. No biliary ductal dilatation is appreciated and the common bile duct measures 3.7 mm diameter. The right kidney is normal in reniform shape without hydronephrosis and measures 13.6 x 4.5 x 6.2 cm with evidence for renovascular calcifications and possible 6 mm nonobstructing midpole calculus. No ascites. Impression: 1. Mild hepatic steatosis and hepatomegaly suggested without focal hepatic lesion. 2. 6 mm nonobstructing right renal calculus. Electronically Signed by Caden Zuniga MD 10/17/2019 03:41 A
== END ==
LOC: M RAD 08:53
PROVIDERS: ATTEND Physician Assistant Medical
DX: R94.5 Abnormal results of liver function studies (principal)

== ENCOUNTER → 2019-12-28 | Outpatient (CLI) | payer BC, OTHER ==
--- NOTE | 2019-12-29 04:45 | REP ---
Clinical: Renal stone. Technique: Real time oreilly scale ultrasound examination using curved array transducer. Findings: Bilateral kidneys are normal in contour, size, echogenicity, and reniform shape without hydronephrosis, cystic or renal mass lesion. Bilateral nonobstructing intrarenal calculi noted. No perinephric fluid collection. Right kidney measures 13.5 x 6.5 x 6.3 cm with largest calculus measuring 6 mm in the mid pole. Left kidney measures 14.4 x 6.4 x 6.6 cm with the largest calculus measuring 8 mm in the upper pole. Bladder is normal and bilateral ureteral jets are identified. Impression: Bilateral nonobstructing intrarenal calculi. No hydronephrosis. Electronically Signed by Caden Zuniga MD 12/29/2019 04:37 A
== END ==
LOC: M RAD 12:26
PROVIDERS: ATTEND Physician Assistant Medical
DX: N20.0 Calculus of kidney (principal)

== ENCOUNTER → 2020-09-19 | Outpatient (CLI) | payer BC, OTHER ==
[2020-09-19 14:19] LABS: BLOOD UREA NITROGEN 14 MG/DL (7-18); GLOMERULAR FILTRATION RATE > 60.0 (>56)
== END ==
LOC: M PLALAB 11:17
PROVIDERS: ATTEND Orthopaedic Surgery
DX: S76.212A Strain of adductor muscle, fascia and tendon of left thigh, initial encounter (principal); X58.XXXA Exposure to other specified factors, initial encounter; Y92.89 Other specified places as the place of occurrence of the external cause; Y93.89 Activity, other specified; Y99.8 Other external cause status

== ENCOUNTER → 2021-04-25 | Outpatient (REF) | payer OTHER ==
[2021-04-25 12:52] LABS: BASO # 0.1 10^3/uL (0.0-0.2); EOS # 0.2 10^3/uL (0.0-0.5); EOS % 2.8 % (0.0-3.0); HEMATOCRIT 47.3 % (42.0-52.0); HEMOGLOBIN 16.1 g/dl (13.5-17.5); LYMPH # 1.9 10^3/uL (1.5-5.0); LYMPH % 27.9 % (24.0-44.0); MEAN CORPUSCULAR HEMOGLOBIN 30.8 pg (27.0-33.0); MEAN CORPUSCULAR VOLUME 90.4 fl (80.0-96.0); MONO # 0.5 10^3/uL (0.0-0.8); MONO % 7.4 % (2.0-8.0); NEUTROPHILS # 4.1 10^3/uL (1.5-8.5); NEUTROPHILS % 60.6 % (36.0-66.0); PLATELET COUNT, AUTOMATED 233 10^3/uL (150-450); RED BLOOD COUNT 5.23 10^6/uL (4.30-6.10); WHITE BLOOD COUNT 6.8 10^3/uL (4.0-10.0)
[2021-04-25 13:20] LABS: ALBUMIN 3.7 GM/DL (3.2-5.2); ALT/SGPT 67 U/L (12-78); BILIRUBIN,TOTAL 0.6 MG/DL (0.2-1.0); BLOOD UREA NITROGEN 11 MG/DL (7-18); CALCIUM LEVEL 9.5 MG/DL (8.5-10.1); CARBON DIOXIDE LEVEL 31 MEQ/L (21-32); CHLORIDE LEVEL 102 MEQ/L (98-107); CHOLESTEROL LEVEL 195 MG/DL (<200); CHOLESTEROL RISK RATIO 3.421 (<5); CREATININE FOR GFR 0.98 MG/DL (0.70-1.30); GLOMERULAR FILTRATION RATE > 60.0 (>56); GLUCOSE, FASTING 257 MG/DL (70-100); HDL CHOLESTEROL 57 MG/DL (>40); LDL CHOLESTEROL 106 MG/DL (<100); NON-HDL-C 138 MG/DL; POTASSIUM SERUM 4.5 MEQ/L (3.5-5.1); SODIUM LEVEL 140 MEQ/L (136-145); TOTAL 25(OH) VITAMIN D 24.2 NG/ML (30.0-100.0); TOTAL PROTEIN 7.3 GM/DL (6.4-8.2); TRIGLYCERIDES LEVEL 160 MG/DL (<150)
[2021-04-25 13:59] LABS: HEMOGLOBIN A1c 10.8 %
== END ==
LOC: M SFHCADAM 09:16
PROVIDERS: ATTEND Physician Assistant Medical
DX: M10.9 Gout, unspecified (principal); E11.9 Type 2 diabetes mellitus without complications; E66.01 Morbid (severe) obesity due to excess calories

== ENCOUNTER → 2021-08-13 | Outpatient (REF) | payer OTHER ==
[~2021-08-13] MED LIST changes: +SEMA14TA PO
[2021-08-13 13:12] LABS: ALBUMIN 3.6 GM/DL (3.2-5.2); ALT/SGPT 41 U/L (12-78); BILIRUBIN,TOTAL 0.4 MG/DL (0.2-1.0); BLOOD UREA NITROGEN 11 MG/DL (7-18); CALCIUM LEVEL 9.4 MG/DL (8.5-10.1); CARBON DIOXIDE LEVEL 30 MEQ/L (21-32); CHLORIDE LEVEL 105 MEQ/L (98-107); CREATININE FOR GFR 1.06 MG/DL (0.70-1.30); GLOMERULAR FILTRATION RATE > 60.0 (>56); GLUCOSE, FASTING 139 MG/DL (70-100); POTASSIUM SERUM 4.7 MEQ/L (3.5-5.1); SODIUM LEVEL 141 MEQ/L (136-145); TOTAL PROTEIN 7.4 GM/DL (6.4-8.2)
[2021-08-13 13:15] LABS: HEMOGLOBIN A1c 7.4 %
== END ==
LOC: M SFHCADAM 10:34
PROVIDERS: ATTEND Physician Assistant Medical
DX: E11.65 Type 2 diabetes mellitus with hyperglycemia (principal)

== ENCOUNTER → 2021-09-26 | Outpatient (CLI) | payer OTHER | LOC: M LABSMTC 10:51 | PROVIDERS: ATTEND Anesthesiology | DX: Z01.812 Encounter for preprocedural laboratory examination (principal); Z20.822 Contact with and (suspected) exposure to COVID-19 ==

== ENCOUNTER → 2022-05-01 | Outpatient (REF) | payer OTHER ==
[~2022-05-01] MED LIST changes: -SEMA14TA PO; +SEMA14TA2 PO
[2022-05-01 13:27] LABS: HEMOGLOBIN A1c 6.7 %
[2022-05-01 14:11] LABS: ALBUMIN 3.7 GM/DL (3.2-5.2); ALT/SGPT 48 U/L (12-78); BILIRUBIN,TOTAL 0.6 MG/DL (0.2-1.0); BLOOD UREA NITROGEN 13 MG/DL (7-18); CALCIUM LEVEL 9.2 MG/DL (8.5-10.1); CARBON DIOXIDE LEVEL 30 MEQ/L (21-32); CHLORIDE LEVEL 104 MEQ/L (98-107); CHOLESTEROL LEVEL 192 MG/DL (<200); CHOLESTEROL RISK RATIO 3.555 (<5); CREATININE FOR GFR 1.13 MG/DL (0.70-1.30); GLOMERULAR FILTRATION RATE > 60.0 (>56); GLUCOSE, FASTING 133 MG/DL (70-100); HDL CHOLESTEROL 54 MG/DL (>40); LDL CHOLESTEROL 104 MG/DL (<100); NON-HDL-C 138 MG/DL; POTASSIUM SERUM 4.5 MEQ/L (3.5-5.1); SODIUM LEVEL 139 MEQ/L (136-145); TOTAL PROTEIN 7.6 GM/DL (6.4-8.2); TRIGLYCERIDES LEVEL 170 MG/DL (<150)
== END ==
LOC: M SFHCADAM 08:37
PROVIDERS: ATTEND Physician Assistant Medical
DX: E11.65 Type 2 diabetes mellitus with hyperglycemia (principal)

== ENCOUNTER → 2022-09-08 | Outpatient (CLI) | payer BC, OTHER ==
[2022-09-08 13:29] LABS: BASO # 0.1 10^3/uL (0.0-0.2); BASO % 0.6 % (0.0-1.0); EOS # 0.2 10^3/uL (0.0-0.5); EOS % 2.7 % (0.0-3.0); HEMATOCRIT 46.9 % (42.0-52.0); HEMOGLOBIN 15.2 g/dl (13.5-17.5); LYMPH # 2.2 10^3/uL (1.5-5.0); LYMPH % 27.7 % (24.0-44.0); MEAN CORPUSCULAR HEMOGLOBIN 30.4 pg (27.0-33.0); MEAN CORPUSCULAR HGB CONC 32.4 g/dl (32.0-36.5); MEAN CORPUSCULAR VOLUME 93.8 fl (80.0-96.0); MONO # 0.5 10^3/uL (0.0-0.8); MONO % 6.3 % (2.0-8.0); NEUTROPHILS # 4.9 10^3/uL (1.5-8.5); NEUTROPHILS % 62.4 % (36.0-66.0); PLATELET COUNT, AUTOMATED 254 10^3/uL (150-450); WHITE BLOOD COUNT 7.8 10^3/uL (4.0-10.0)
[2022-09-08 13:52] LABS: ERYTHROCYTE SEDIMENTATION RATE 18 mm/hr (0-20)
[2022-09-08 13:57] LABS: URIC ACID 5.8 MG/DL (3.7-9.2)
[2022-09-08 14:00] LABS: RHEUMATOID FACTOR QUANT < 3.5 IU/ML (<14)
[2022-09-09 13:07] LABS: ANTINUCLEAR ANTIBODIES DIRECT Negative (Negative)
== END ==
LOC: M PLALAB 11:22
PROVIDERS: ATTEND Physician Assistant Surgical
DX: M17.12 Unilateral primary osteoarthritis, left knee (principal)

== ENCOUNTER → 2022-12-11 | Outpatient (REF) | payer OTHER ==
[2022-12-11 13:38] LABS: BASO # 0.1 10^3/uL (0.0-0.2); BASO % 0.6 % (0.0-1.0); EOS # 0.2 10^3/uL (0.0-0.5); EOS % 2.8 % (0.0-3.0); HEMATOCRIT 47.9 % (42.0-52.0); HEMOGLOBIN 15.7 g/dl (13.5-17.5); LYMPH # 2.6 10^3/uL (1.5-5.0); LYMPH % 31.7 % (24.0-44.0); MEAN CORPUSCULAR HEMOGLOBIN 30.7 pg (27.0-33.0); MEAN CORPUSCULAR HGB CONC 32.8 g/dl (32.0-36.5); MEAN CORPUSCULAR VOLUME 93.6 fl (80.0-96.0); MONO # 0.5 10^3/uL (0.0-0.8); MONO % 6.7 % (2.0-8.0); NEUTROPHILS # 4.7 10^3/uL (1.5-8.5); NEUTROPHILS % 57.8 % (36.0-66.0); PLATELET COUNT, AUTOMATED 276 10^3/uL (150-450); RED BLOOD COUNT 5.12 10^6/uL (4.30-6.10); WHITE BLOOD COUNT 8.1 10^3/uL (4.0-10.0)
[2022-12-11 13:49] LABS: ALBUMIN 3.7 G/DL (3.2-5.2); ALKALINE PHOSPHATASE 123 U/L (46-116); ALT/SGPT 36 U/L (7.0-40); AST/SGOT 26 U/L (<34); BILIRUBIN,TOTAL 0.6 MG/DL (0.3-1.2); BLOOD UREA NITROGEN 10 MG/DL (9-23); CALCIUM LEVEL 9.3 MG/DL (8.5-10.1); CARBON DIOXIDE LEVEL 32 MMOL/L (20-31); CHLORIDE LEVEL 104 MMOL/L (98-107); GLOMERULAR FILTRATION RATE > 60.0 (>56); GLUCOSE, FASTING 125 MG/DL (60-100); POTASSIUM SERUM 4.3 MMOL/L (3.5-5.1); SODIUM LEVEL 138 MMOL/L (136-145); TOTAL PROTEIN 7.1 G/DL (5.7-8.2)
[2022-12-11 13:55] LABS: HEMOGLOBIN A1c 7.5 % (4.0-6.0)
[2022-12-11 14:02] LABS: CREATININE, URINE 204.8 MG/DL; MAU/CREAT RATIO 2.4 MCG/MG (0.0-30.0)
== END ==
LOC: M SFHCADAM 08:24
PROVIDERS: ATTEND Physician Assistant Medical
DX: E11.65 Type 2 diabetes mellitus with hyperglycemia (principal); E66.01 Morbid (severe) obesity due to excess calories

== ENCOUNTER → 2023-07-16 | Outpatient (REF) | payer OTHER ==
[2023-07-16 13:12] LABS: THYROID STIMULATING HORMONE 1.989 uIU/ML (0.55-4.78)
[2023-07-16 13:13] LABS: ALBUMIN 3.4 G/DL (3.2-5.2); ALKALINE PHOSPHATASE 111 U/L (46-116); ALT/SGPT 63 U/L (7.0-40); AST/SGOT 55 U/L (<34); BILIRUBIN,TOTAL 0.3 MG/DL (0.3-1.2); BLOOD UREA NITROGEN 12 MG/DL (9-23); CALCIUM LEVEL 9.1 MG/DL (8.5-10.1); CARBON DIOXIDE LEVEL 28 MMOL/L (20-31); CHLORIDE LEVEL 106 MMOL/L (98-107); CHOLESTEROL LEVEL 173 MG/DL (<200); CHOLESTEROL RISK RATIO 3.31 (<5); CREATININE FOR GFR 0.88 MG/DL (0.70-1.30); GLOMERULAR FILTRATION RATE > 60.0 (>56); GLUCOSE, FASTING 166 MG/DL (60-100); HDL CHOLESTEROL 52.2 MG/DL (>40); NON-HDL-C 120.8 MG/DL; POTASSIUM SERUM 4.7 MMOL/L (3.5-5.1); SODIUM LEVEL 140 MMOL/L (136-145); TOTAL 25(OH) VITAMIN D 23.5 NG/ML (20.0-100.0); TOTAL PROTEIN 6.7 G/DL (5.7-8.2); TRIGLYCERIDES LEVEL 139 MG/DL (<150)
[2023-07-16 13:19] LABS: HEMOGLOBIN A1c 7.6 % (4.0-6.0)
[2023-07-16 14:22] LABS: CREATININE, URINE 138.1 MG/DL; MAU/CREAT RATIO 2.8 MCG/MG (0.0-30.0)
== END ==
LOC: M SFHCADAM 08:12
PROVIDERS: ATTEND Physician Assistant Medical
DX: E11.65 Type 2 diabetes mellitus with hyperglycemia (principal); E66.01 Morbid (severe) obesity due to excess calories

== ENCOUNTER → 2024-01-14 | Outpatient (REF) | payer BC ==
[2024-01-14 13:03] LABS: ALBUMIN 3.4 G/DL (3.2-5.2); ALKALINE PHOSPHATASE 161 U/L (46-116); ALT/SGPT 65 U/L (7.0-40); AST/SGOT 36 U/L (<34); BILIRUBIN,TOTAL 0.4 MG/DL (0.3-1.2); BLOOD UREA NITROGEN 13 MG/DL (9-23); CALCIUM LEVEL 9.3 MG/DL (8.5-10.1); CARBON DIOXIDE LEVEL 30 MMOL/L (20-31); CHLORIDE LEVEL 102 MMOL/L (98-107); CHOLESTEROL LEVEL 168 MG/DL (<200); CHOLESTEROL RISK RATIO 3.38 (<5); CREATININE FOR GFR 0.97 MG/DL (0.70-1.30); GLOMERULAR FILTRATION RATE > 60.0 (>56); GLUCOSE, FASTING 335 MG/DL (60-100); HDL CHOLESTEROL 49.6 MG/DL (>40); LDL CHOLESTEROL 88.6 MG/DL (<100); NON-HDL-C 118.4 MG/DL; POTASSIUM SERUM 4.9 MMOL/L (3.5-5.1); SODIUM LEVEL 138 MMOL/L (136-145); TOTAL PROTEIN 6.8 G/DL (5.7-8.2); TRIGLYCERIDES LEVEL 149 MG/DL (<150)
[2024-01-14 13:05] LABS: THYROID STIMULATING HORMONE 2.052 uIU/ML (0.55-4.78)
[2024-01-14 13:09] LABS: BASO % 0.7 % (0.0-1.0); EOS # 0.2 10^3/uL (0.0-0.5); EOS % 3.2 % (0.0-3.0); HEMOGLOBIN 15.8 g/dl (13.5-17.5); LYMPH # 1.9 10^3/uL (1.5-5.0); LYMPH % 32.6 % (24.0-44.0); MEAN CORPUSCULAR HEMOGLOBIN 31.5 pg (27.0-33.0); MEAN CORPUSCULAR HGB CONC 33.6 g/dl (32.0-36.5); MEAN CORPUSCULAR VOLUME 93.6 fl (80.0-96.0); MONO # 0.5 10^3/uL (0.0-0.8); MONO % 9.1 % (2.0-8.0); NEUTROPHILS # 3.2 10^3/uL (1.5-8.5); NEUTROPHILS % 53.2 % (36.0-66.0); PLATELET COUNT, AUTOMATED 249 10^3/uL (150-450); RED BLOOD COUNT 5.02 10^6/uL (4.30-6.10)
[2024-01-14 13:16] LABS: HEMOGLOBIN A1c 10.8 % (4.0-6.0)
== END ==
LOC: M SFHCADAM 08:26
PROVIDERS: ATTEND Physician Assistant Medical
DX: E11.65 Type 2 diabetes mellitus with hyperglycemia (principal); E55.9 Vitamin D deficiency, unspecified

== ENCOUNTER → 2024-02-11 | Outpatient (CLI) | payer BC | LOC: M WHC 07:19 | PROVIDERS: ATTEND Physician Assistant Medical | DX: K76.0 Fatty (change of) liver, not elsewhere classified (principal) ==

== ENCOUNTER 2024-04-21 08:48 | Day surgery (SDC) | payer BC ==
[~2024-04-21] VITALS: Ht 177.8 cm; Wt 118.1 kg
[~2024-04-21 08:48] MED LIST changes: +BASA100I SC; +GLIP5TAB20 PO
[2024-04-21] MEDS: NS 1,000 ML IV ONE (10:05)
[2024-04-21] MEDS ORDERED: LIDOCAINE 2% 100MG/5ML SDV (FOR ANES.) As Ordered ONE (10:40)
[2024-04-21] MEDS ORDERED: propofoL 200 MG/20 ML VIAL As Ordered ONE (10:40)
[2024-04-21 10:49] VITALS: TEMP 96.9
[2024-04-21 11:10] VITALS: BP 112/77; O2SAT 98
== END 2024-04-21 11:25 | disposition home or self-care (01) ==
LOC: M OPP 08:48
PROVIDERS: ATTEND Surgery
DX: Z12.11 Encounter for screening for malignant neoplasm of colon (principal); Z80.0 Family history of malignant neoplasm of digestive organs; D12.0 Benign neoplasm of cecum; K57.30 Diverticulosis of large intestine without perforation or abscess without bleeding; E11.9 Type 2 diabetes mellitus without complications; F17.220 Nicotine dependence, chewing tobacco, uncomplicated; Z79.4 Long term (current) use of insulin; Z79.899 Other long term (current) drug therapy; Z88.5 Allergy status to narcotic agent; Z88.6 Allergy status to analgesic agent

== ENCOUNTER → 2024-08-18 | Outpatient (REF) | payer BC ==
[2024-08-18 13:54] LABS: BASO # 0.1 10^3/uL (0.0-0.2); BASO % 0.9 % (0.0-1.0); EOS # 0.2 10^3/uL (0.0-0.5); EOS % 3.8 % (0.0-3.0); HEMATOCRIT 47.7 % (42.0-52.0); HEMOGLOBIN 15.9 g/dl (13.5-17.5); LYMPH # 1.6 10^3/uL (1.5-5.0); LYMPH % 28.6 % (24.0-44.0); MEAN CORPUSCULAR HGB CONC 33.3 g/dl (32.0-36.5); MONO # 0.5 10^3/uL (0.0-0.8); MONO % 8.6 % (2.0-8.0); NEUTROPHILS # 3.2 10^3/uL (1.5-8.5); NEUTROPHILS % 57.9 % (36.0-66.0); PLATELET COUNT, AUTOMATED 269 10^3/uL (150-450); RED BLOOD COUNT 5.13 10^6/uL (4.30-6.10); WHITE BLOOD COUNT 5.6 10^3/uL (4.0-10.0)
[2024-08-18 14:06] LABS: ALBUMIN 3.7 G/DL (3.2-5.2); ALKALINE PHOSPHATASE 116 U/L (40-129); ALT/SGPT 53 U/L (7.0-40); AST/SGOT 37 U/L (<34); BILIRUBIN,TOTAL 0.5 MG/DL (0.3-1.2); BLOOD UREA NITROGEN 13 MG/DL (9-23); CALCIUM LEVEL 9.8 MG/DL (8.5-10.1); CARBON DIOXIDE LEVEL 29 MMOL/L (20-31); CHLORIDE LEVEL 105 MMOL/L (98-107); CHOLESTEROL LEVEL 202 MG/DL (<200); CHOLESTEROL RISK RATIO 3.76 (<5); GLOMERULAR FILTRATION RATE > 60.0 (>56); GLUCOSE, FASTING 191 MG/DL (60-100); HDL CHOLESTEROL 53.6 MG/DL (>40); LDL CHOLESTEROL 126.8 MG/DL (<100); NON-HDL-C 148.4 MG/DL; POTASSIUM SERUM 4.3 MMOL/L (3.5-5.1); SODIUM LEVEL 140 MMOL/L (136-145); THYROID STIMULATING HORMONE 2.356 uIU/ML (0.55-4.78); TOTAL PROTEIN 7.7 G/DL (5.7-8.2); TRIGLYCERIDES LEVEL 108 MG/DL (<150)
[2024-08-18 14:07] LABS: TOTAL 25(OH) VITAMIN D 21.8 NG/ML (20.0-100.0)
[2024-08-18 14:31] LABS: CREATININE, URINE 279.2 MG/DL; MAU/CREAT RATIO 2.5 MCG/MG (0.0-30.0)
== END ==
LOC: M SFHCADAM 09:08
PROVIDERS: ATTEND Physician Assistant Medical
DX: E11.65 Type 2 diabetes mellitus with hyperglycemia (principal); K76.0 Fatty (change of) liver, not elsewhere classified; E55.9 Vitamin D deficiency, unspecified; E66.01 Morbid (severe) obesity due to excess calories

== ENCOUNTER → 2024-08-25 | Outpatient (REF) | payer BC ==
[2024-08-25 14:00] LABS: HEMOGLOBIN A1c 8.6 % (4.0-6.0)
== END ==
LOC: M SFHCADAM 09:39
PROVIDERS: ATTEND Physician Assistant Medical
DX: E11.65 Type 2 diabetes mellitus with hyperglycemia (principal)

== ENCOUNTER → 2025-08-31 | Outpatient (REF) | payer BC ==
[~2025-08-31] MED LIST changes: -FLOM0.4C39 PO; +GLIP-318 PO; -GLIP5TAB20 PO; +TAMS-18 PO
[2025-08-31 13:56] LABS: BASO # 0.1 10^3/uL (0.0-0.2); BASO % 0.8 % (0.0-1.0); EOS # 0.2 10^3/uL (0.0-0.5); EOS % 2.7 % (0.0-3.0); LYMPH # 2.3 10^3/uL (1.5-5.0); LYMPH % 36.8 % (24.0-44.0); MONO # 0.6 10^3/uL (0.0-0.8); MONO % 9.1 % (2.0-8.0); NEUTROPHILS # 3.1 10^3/uL (1.5-8.5); NEUTROPHILS % 50.4 % (36.0-66.0); PLATELET COUNT, AUTOMATED 264 10^3/uL (150-450)
[2025-08-31 14:10] LABS: ALT/SGPT 38 U/L (7.0-40); AST/SGOT 33 U/L (<34); CALCIUM LEVEL 9.1 MG/DL (8.5-10.1); CARBON DIOXIDE LEVEL 30 MMOL/L (20-31); CHLORIDE LEVEL 105 MMOL/L (98-107); CHOLESTEROL LEVEL 173 MG/DL (<200); CHOLESTEROL RISK RATIO 3.16 (<5); CREATININE FOR GFR 0.92 MG/DL (0.70-1.30); GLOMERULAR FILTRATION RATE > 90.0 (>56); LDL CHOLESTEROL 99.8 MG/DL (<100); NON-HDL-C 118.4 MG/DL; POTASSIUM SERUM 4.5 MMOL/L (3.5-5.1); SODIUM LEVEL 142 MMOL/L (136-145); TRIGLYCERIDES LEVEL 93 MG/DL (<150)
[2025-08-31 14:14] LABS: TOTAL 25(OH) VITAMIN D 53.8 NG/ML (20.0-100.0)
[2025-08-31 15:16] LABS: ESTIMATED AVERAGE GLUCOSE 157.0 MG/DL (60-110)
== END ==
LOC: M SFHCADAM 10:58
PROVIDERS: ATTEND Physician Assistant Medical
DX: E11.65 Type 2 diabetes mellitus with hyperglycemia (principal); K76.0 Fatty (change of) liver, not elsewhere classified; E55.9 Vitamin D deficiency, unspecified; E66.01 Morbid (severe) obesity due to excess calories